=== PATIENT | female | born 1960 ===

== ENCOUNTER 2017-11-15 11:21 | Outpatient (CLI) | payer BC ==
--- NOTE | 2017-11-15 15:08 | RAD ---
TWO VIEWS CHEST: DATE: 11/15/17. PROVIDED CLINICAL HISTORY: Cough. FINDINGS: Cardiac silhouette appears enlarged. Evaluation is limited by patient body habitus. No definite foc al consolidation, pleural fluid, or pneumothorax apparent. IMPRESSION: Cardiomegaly without evidence for an acute cardiopulmonary process. POS: C
== END 2017-11-15 11:22 | disposition home or self-care (01) ==
LOC: MADRAD 11:21
DX: R05 Cough (principal); I51.7 Cardiomegaly
CPT/HCPCS: 71046